=== PATIENT | female | born 1965 | race Caucasian/White ===

== ENCOUNTER 2016-06-19 17:43 | Emergency (ER) | payer OTHER ==
[~2016-06-19 17:43] MED LIST: ALBUTEROL17 GM INH; ALBUTEROL20 ml INH; CELEXA PO; DOXYCYCLINE150 MG PO; FLAGYL PO; HIGH BLOOD PRESS MED PO; IBUPROFEN800 MG PO; INDOMETHACIN25 MG PO; KEFLEX500 MG PO; LEXAPRO20 MG PO; LIPITOR PO; LISINOPRIL; MUCINEX D ER T1 EAC1 PO; PEN-VEE K PO; PROGESTERONE PO; PROMETHAZI6.25 MG/5 PO; PROZAC; PYRIDIUM100 MG PO; ROBITUSSIN PE118 ML PO; VICODIN 5/500 T1 TAB PO; VOLTAREN75 MG PO; XANAX1 MG PO; ZESTORETIC 10/11 TAB PO; ZITHROMAX PO
== END 2016-06-19 18:03 | disposition home or self-care (01) ==
LOC: SED 17:43
DX: J06.9 Acute upper respiratory infection, unspecified (principal); F41.9 Anxiety disorder, unspecified; I10 Essential (primary) hypertension; F17.210 Nicotine dependence, cigarettes, uncomplicated; Z79.899 Other long term (current) drug therapy
CPT/HCPCS: 94640; 99283

== ENCOUNTER 2016-09-30 11:35 | Emergency (ER) | payer OTHER ==
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
[2016-09-30] MEDS ORDERED: TRAZODONE HCL150 MG PO (12:11)
[2016-09-30] MEDS ORDERED: IBUPROFEN PO (12:11)
[2016-09-30] MEDS ORDERED: FERROUS SULFAT325 MG PO (12:13)
[2016-09-30] MEDS ORDERED: CLARITIN10 M3 DOB (12:13)
[2016-09-30] MEDS ORDERED: MULTIVITAMINS1 EAC3 (12:14)
[2016-09-30] MEDS ORDERED: TOPAMAX50 MG PO (12:15)
== END 2016-09-30 13:48 | disposition home or self-care (01) ==
LOC: SED 11:35
DX: S10.93XA Contusion of unspecified part of neck, initial encounter (principal); S50.12XA Contusion of left forearm, initial encounter; I10 Essential (primary) hypertension; F41.9 Anxiety disorder, unspecified; V49.00XA Driver injured in collision with unspecified motor vehicles in nontraffic accident, initial encounter; Y92.410 Unspecified street and highway as the place of occurrence of the external cause
CPT/HCPCS: 70450; 71010; 72125; 73090; 99284

== ENCOUNTER 2016-10-16 22:23 | Emergency (ER) | payer OTHER ==
[~2016-10-16] VITALS: Ht 157.5 cm; Wt 65.8 kg
[~2016-10-16 22:23] MED LIST changes: +CLARITIN10 M3 DOB; +FERROUS SULFAT325 MG PO; +IBUPROFEN PO; +MULTIVITAMINS1 EAC3; +TOPAMAX50 MG PO; +TRAZODONE HCL150 MG PO
== END 2016-10-17 01:12 | disposition home or self-care (01) ==
LOC: CFTX 22:23 → CED 22:23 → CFTX 23:59
DX: K08.89 Other specified disorders of teeth and supporting structures (principal); I10 Essential (primary) hypertension; F32.9 Major depressive disorder, single episode, unspecified; F41.9 Anxiety disorder, unspecified; F17.210 Nicotine dependence, cigarettes, uncomplicated; Z79.899 Other long term (current) drug therapy
CPT/HCPCS: 99283